=== PATIENT | female | born 1990 | race Caucasian/White ===

== ENCOUNTER 2017-10-21 18:39 | Inpatient (IN) | payer OTHER ==
[2017-10-21] MEDS ORDERED: OXYTOCIN 30 UNITS/LR 500 ML IV (21:30)
[2017-10-21] MEDS ORDERED: CARBOPROST 250 MCG INJ IM (21:30)
[2017-10-21] MEDS ORDERED: MISOPROSTOL 200 MCG TAB PR (21:30)
[2017-10-21] MEDS ORDERED: METHYLERGONOVINE 0.2 MG INJ IM (21:30)
[2017-10-22 01:21] LABS: ADD MAN DIFF? NO
[2017-10-22 01:22] LABS: WHITE BLOOD COUNT 8.5 10^3/ul (4.8-10.8)
[2017-10-22 01:22] LABS: BASOPHILS % 0.1 % (0.0-2.0); EOSINOPHILS # 0.1 10^3/ul (0.0-0.5); EOSINOPHILS % 0.8 % (0.0-7.0); HEMOGLOBIN 10.3 g/dl (12.0-16.0); IMMATURE GRANS #M 0.02 10^3/ul; IMMATURE GRANS % (M) 0.2 %; LYMPHOCYTES # 1.6 10^3/ul (0.8-2.9); LYMPHOCYTES % 18.8 % (15.0-51.0); MEAN CORPUSCULAR HEMOGLOBIN 28.9 pg (29.0-33.0); MEAN CORPUSCULAR HGB CONC 33.2 g/dl (32.0-37.0); MEAN CORPUSCULAR VOLUME 86.8 fl (82.0-101.0); MEAN PLATELET VOLUME 10.5 fl (7.4-10.4); MONOCYTE # 0.8 10^3/ul (0.3-0.9); NEUTROPHILS % 71.1 % (39.0-77.0); PLATELET COUNT 227 10^3/UL (140-415); RED BLOOD COUNT 3.57 10^6/ul (4.20-5.40); RED CELL DISTRIBUTION WIDTH 15.4 % (11.5-14.5)
[2017-10-22 01:38] LABS: INR 0.98; PARTIAL THROMBOPLASTIN TIME 27.5 Sec (25.0-35.0); PROTIME 13.1 Sec (11.9-14.9)
[2017-10-22 04:10] LABS: AMPHETAMINE/METHAMPHETAMINE Negative (NEGATIVE); BARBITURATES Negative (NEGATIVE); BENZODIAZEPINES Negative (NEGATIVE); CANNABINOIDS Negative (NEGATIVE); COCAINE Negative (NEGATIVE); OPIATES Negative (NEGATIVE)
[2017-10-22] MEDS ORDERED: OXYTOCIN 30 UNITS/LR 500 ML BAG IV (07:00)
[2017-10-22] MEDS: LACTATED RINGER'S 1,000 ML IV ×4 (19:00→21:30)
[2017-10-22 19:15] LABS: RAPID PLASMA REAGIN NONREACTIVE (NR)
[2017-10-22] MEDS ORDERED: morphine SULFATE/PF (10 MG/10 ML) INJ (21:05)
[2017-10-22] MEDS ORDERED: PHENYLephrine (100 MCG/ML) 5ML SYG (21:05)
[2017-10-22] MEDS ORDERED: OXYTOCIN 10 UNIT INJ (21:05)
[2017-10-22] MEDS ORDERED: ONDANSETRON 4 MG INJ (21:05)
[2017-10-22] MEDS ORDERED: BUPIVACAINE 0.75%/DEXT (SPINAL) 2 ML INJ (21:07)
[2017-10-22] MEDS ORDERED: MIDAZOLAM 1 MG/ML 2 ML INJ (21:28)
[2017-10-22] MEDS ORDERED: FENTAnyl 50 MCG/ML VIAL (22:41)
[2017-10-22] MEDS ORDERED: morphine 2 MG INJ IV (23:00)
[2017-10-22] MEDS ORDERED: NALOXONE (0.4 MG/ML) INJ IV (23:00)
[2017-10-22] MEDS ORDERED: ONDANSETRON 4 MG INJ IV (23:00)
[2017-10-22] MEDS: OXYTOCIN 30 UNITS/LR 500 ML IV (23:24)
[2017-10-22] MEDS: DIPHENHYDRAMINE 50 MG INJ IV (23:27)
[2017-10-23] MEDS ORDERED: OXYTOCIN 30 UNITS/LR 500 ML IV
[2017-10-23] MEDS ORDERED: LANOLIN 7 GM TUBE TOP
[2017-10-23] MEDS ORDERED: METHYLERGONOVINE 0.2 MG INJ IM
[2017-10-23] MEDS ORDERED: METHYLERGONOVINE 0.2 MG TAB PO
[2017-10-23] MEDS ORDERED: MISOPROSTOL 200 MCG TAB PR
[2017-10-23] MEDS ORDERED: CARBOPROST 250 MCG INJ IM
[2017-10-23] MEDS: KETOROLAC 30 MG INJ IV (00:33)
[2017-10-23] MEDS: OXYTOCIN 30 UNITS/LR 500 ML IV (03:37)
[2017-10-23] MEDS: DEXTROSE 5%-LR 1,000 ML IV ×3 (03:51→07:57)
[2017-10-23] MEDS: CEFAZOLIN 2 GM/50 ML (PMX) 50 ML IV (04:08)
[2017-10-23] MEDS: LACTATED RINGER'S 1,000 ML IV (05:30)
[2017-10-23 05:51] LABS: ADD MAN DIFF? NO
[2017-10-23 05:57] LABS: WHITE BLOOD COUNT 8.3 10^3/ul (4.8-10.8)
[2017-10-23 05:57] LABS: BASOPHILS % 0.2 % (0.0-2.0); EOSINOPHILS % 0.4 % (0.0-7.0); HEMATOCRIT 28.4 % (37.0-47.0); HEMOGLOBIN 9.3 g/dl (12.0-16.0); LYMPHOCYTES # 1.4 10^3/ul (0.8-2.9); LYMPHOCYTES % 16.6 % (15.0-51.0); MEAN CORPUSCULAR HEMOGLOBIN 28.8 pg (29.0-33.0); MEAN CORPUSCULAR HGB CONC 32.7 g/dl (32.0-37.0); MEAN CORPUSCULAR VOLUME 87.9 fl (82.0-101.0); MEAN PLATELET VOLUME 10.9 fl (7.4-10.4); MONOCYTE # 0.7 10^3/ul (0.3-0.9); NEUTROPHIL # 6.1 10^3/ul (1.6-7.5); NEUTROPHILS % 74.3 % (39.0-77.0); PLATELET COUNT 209 10^3/UL (140-415); RED BLOOD COUNT 3.23 10^6/ul (4.20-5.40); RED CELL DISTRIBUTION WIDTH 15.4 % (11.5-14.5)
[2017-10-23] MEDS: SENNA/DOCUSATE NA (8.6MG/50MG) TAB PO ×2 (09:00→20:55)
[2017-10-23] MEDS: OXYCODONE/ACETAMINOPHEN (5/325) TAB PO ×2 (20:55→23:59)
[2017-10-23] MEDS: IBUPROFEN 800 MG TAB PO (22:19)
[2017-10-24] MEDS: OXYCODONE/ACETAMINOPHEN (5/325) TAB PO ×2 (05:58→13:22)
[2017-10-24] MEDS: IBUPROFEN 800 MG TAB PO ×2 (05:58→13:22)
[2017-10-24] MEDS: SENNA/DOCUSATE NA (8.6MG/50MG) TAB PO (09:00)
[2017-10-25] MEDS ORDERED: DIPHTH/TET/ACEL PERTUSS (ADULT) 0.5 ML VIAL IM* (09:00)
[2017-10-25] MEDS ORDERED: MEASLES,MUMPS,RUBELLA VACCINE INJ SC* (09:00)
== END 2017-10-24 15:35 | disposition home or self-care (01) | DRG 765 ==
LOC: OBT 18:39 → L-D 10-22 13:39 → 2NE 10-23 02:57 → L-D 18:40 → OBT 21:20 → L-D 21:20
PROVIDERS: Obstetrics & Gynecology
PROC: 10D00Z1 Extraction of Products of Conception, Low, Open Approach (ICD-10-PCS; principal; 2017-10-22)
DX: O36.4XX0 Maternal care for intrauterine death, not applicable or unspecified (principal); F33.9 Major depressive disorder, recurrent, unspecified; O69.2XX0 Labor and delivery complicated by other cord entanglement, with compression, not applicable or unspecified; O99.344 Other mental disorders complicating childbirth; O99.214 Obesity complicating childbirth; E66.9 Obesity, unspecified; Z68.37 Body mass index [BMI] 37.0-37.9, adult; Z3A.36 36 weeks gestation of pregnancy; Z37.1 Single stillbirth; Z86.32 Personal history of gestational diabetes
CPT/HCPCS: 76815; 76818; 80307; 85025; 85610; 85730; 86592; 86850; 86900; 86901; 88307

== ENCOUNTER 2018-11-02 21:33 | Emergency (ER) | payer OTHER ==
[2018-11-02 23:52] LABS: ADD UMIC YES; UR ASCORBIC ACID NEGATIVE (NEGATIVE); UR BILIRUBIN (Dip) NEGATIVE (NEGATIVE); UR BLOOD (Dip) NEGATIVE (NEGATIVE); UR CLARITY CLEAR (CLEAR); UR COLOR YELLOW (YELLOW); UR GLUCOSE (Dip) NEGATIVE (NEGATIVE); UR KETONES (Dip) NEGATIVE (NEGATIVE); UR LEUKOCYTE ESTERASE (Dip) TRACE Leu/ul (NEGATIVE); UR NITRITE (Dip) NEGATIVE (NEGATIVE); UR RBC 0 /HPF (0-5); UR SPECIFIC GRAVITY (Dip) 1.014 (1.003-1.030); UR SQUAMOUS EPITHELIAL CELL FEW /HPF (FEW); UR TOTAL PROTEIN (Dip) NEGATIVE (NEGATIVE); UR UROBILINOGEN (Dip) NEGATIVE (NEGATIVE); UR WBC 3 /HPF (0-5)
== END 2018-11-03 00:38 | disposition home or self-care (01) ==
LOC: FTE 11-03 00:38
DX: R10.32 Left lower quadrant pain (principal); R10.2 Pelvic and perineal pain
CPT/HCPCS: 76830; 76856; 81001; 81025; 99284-25